=== PATIENT | male | born 1950 | race Caucasian/White ===

== ENCOUNTER 2016-12-23 09:09 | Observation (INO) | payer MEDICARE, OTHER ==
[2016-12-23] MEDS ORDERED: PRENATAL-U CAPS1 CAP PO (11:13)
[2016-12-23 12:02] LABS: BASO % 0.1 % (0-2); EOS % 0.1 % (0-7); HCT-HEMATOCRIT 41.2 % (36.0-53.5); HGB-HEMOGLOBIN 14.1 gm/dl (13.5-17.0); IMMATURE GRANULOCYTES ABSOLUTE 0.01 tho/cmm (0-0.03); IMMATURE GRANULOCYTES PERCENT 0.1 % (0-0.3); LYMPH % 3.6 % (20-45); LYMPH ABSOLUTE COUNT 0.4 tho/cmm (0.8-4.5); MCH (MEAN CORPUSCULAR HGB) 30.7 pg (28.0-32.0); MCHC MEAN CORPUSCULAR HGB CONC 34.2 % (32.0-36.0); MCV (MEAN CELL VOLUME) 89.8 fl (82.0-96.0); MEAN PLATELET VOLUME 9.6 cmc (9.4-12.4); MONO % 3.2 % (0-12); MONOCYTE ABSOLUTE COUNT 0.3 tho/cmm (0.0-1.2); NEUTROPHIL ABSOLUTE COUNT 9.5 tho/cmm (1.6-8.0); NEUTROPHIL-AUTOMATED 9.5 tho/cmm (1.6-8.0); NEUTROPHILS % 92.9 % (40-80); PLATELET COUNT 152 tho/cmm (150-450); RED BLOOD COUNT 4.59 mil/cmm (4.40-5.70); RED CELL DISTRIBUTION WIDTH 13.6 % (12.4-16.4); WHITE BLOOD COUNT 10.2 tho/cmm (4.0-10.0)
[2016-12-23 12:37] LABS: ALB/GLOB RATIO 0.8 (0.8-2.0); ALBUMIN 3.3 g/dl (3.5-5.0); ALKALINE PHOSPHATASE 74 U/L (33-138); ALT/SGPT 28 U/L (12-78); BLOOD UREA NITROGEN 24 mg/dl (6-24); CALCIUM 8.6 mg/dl (8.5-10.5); CARBON DIOXIDE-VENOUS 23 mmol/L (22-32); CHLORIDE 108 mmol/l (96-110); CREATININE 1.08 mg/dl (0.60-1.30); GLUCOSE 114 mg/dL (70-110); SODIUM 140 mmol/L (135-145); eGFR VALUE FOR BLACK 82 mL/Min
[2016-12-23 12:51] LABS: ANION GAP 14 mmol/L (0-20)
[2016-12-23 12:52] LABS: AST/SGOT 28 U/L (10-40); POTASSIUM 4.6 mmol/L (3.7-5.1)
[2016-12-23 12:58] LABS: PROCALCITONIN 0.86 ng/ml (0.05-0.09)
[2016-12-23 13:19] LABS: URINE BILIRUBIN NEGATIVE (NEG); URINE BLOOD NEGATIVE (NEG); URINE GLUCOSE (UA) NEGATIVE (NEG); URINE KETONE MODERATE (NEG); URINE LEUKOCYTE ESTERASE NEGATIVE (NEG); URINE NITRITE NEGATIVE (NEG); URINE PH 6.5 (5.0-8.0); URINE PROTEIN NEGATIVE (NEG); URINE SPECIFIC GRAVITY 1.015 (1.003-1.030)
[2016-12-23 13:20] LABS: URINE APPEARANCE CLEAR; URINE COLOR DARK YELLOW
[2016-12-23] MEDS ORDERED: DAILY MULTIPLE1 EAC2 PO (13:52)
[2016-12-24 05:48] LABS: ANION GAP 11 mmol/L (0-20); BLOOD UREA NITROGEN 17 mg/dl (6-24); CALCIUM 8.2 mg/dl (8.5-10.5); CARBON DIOXIDE-VENOUS 26 mmol/L (22-32); CHLORIDE 110 mmol/l (96-110); CREATININE 1.07 mg/dl (0.60-1.30); GLUCOSE 121 mg/dL (70-110); SODIUM 142 mmol/L (135-145); eGFR VALUE FOR BLACK 83 mL/Min
[2016-12-24 05:52] LABS: BASO % 0.2 % (0-2); HCT-HEMATOCRIT 38.2 % (36.0-53.5); HGB-HEMOGLOBIN 12.7 gm/dl (13.5-17.0); IMMATURE GRANULOCYTES ABSOLUTE 0.02 tho/cmm (0-0.03); IMMATURE GRANULOCYTES PERCENT 0.4 % (0-0.3); LYMPH % 5.6 % (20-45); LYMPH ABSOLUTE COUNT 0.3 tho/cmm (0.8-4.5); MCH (MEAN CORPUSCULAR HGB) 30.2 pg (28.0-32.0); MCHC MEAN CORPUSCULAR HGB CONC 33.2 % (32.0-36.0); MEAN PLATELET VOLUME 9.9 cmc (9.4-12.4); MONO % 2.5 % (0-12); MONOCYTE ABSOLUTE COUNT 0.1 tho/cmm (0.0-1.2); NEUTROPHIL ABSOLUTE COUNT 5.2 tho/cmm (1.6-8.0); NEUTROPHIL-AUTOMATED 5.2 tho/cmm (1.6-8.0); NEUTROPHILS % 91.3 % (40-80); PLATELET COUNT 124 tho/cmm (150-450); POTASSIUM 4.5 mmol/L (3.7-5.1); RED CELL DISTRIBUTION WIDTH 13.8 % (12.4-16.4); WHITE BLOOD COUNT 5.7 tho/cmm (4.0-10.0)
[2016-12-24] MEDS ORDERED: TYLENOL325 M2 PO (11:35)
== END 2016-12-24 12:15 ==
LOC: EDMED 09:09 → EMR2 14:21 → CAR1 14:50
PROVIDERS: Emergency Medicine; Internal Medicine; ADMIT Hospitalist
DX: R50.9 Fever, unspecified (principal); Z79.899 Other long term (current) drug therapy; Z91.013 Allergy to seafood; Z90.89 Acquired absence of other organs; Z98.890 Other specified postprocedural states
CPT/HCPCS: G0378; J0696; J2405; J7030